=== PATIENT | male | born 1990 | race African-American/Black ===

== ENCOUNTER 2018-09-13 12:41 | Inpatient (IN) | payer OTHER ==
[2018-09-13 14:46] VITALS: BMI 24.2
--- NOTE | 2018-09-13 19:47 | HP ---
CIWA Score - Admission Criteria [facility]AS Guidelines: Admission for Medically Managed Detox: Requires at least one of the followin. CIWA greater than 12 2. Seizures within the past 24 hours 3. Delirium tremens within the past 24 hours 4. Hallucinations within the past 24 hours 5. Acute intervention needed for co occurring medical disorder 6. Acute intervention needed for co occurring psychiatric disorder 7. Severe withdrawal that cannot be handled at a lower level of care (continued vomiting, continued diarrhea, abnormal vital signs) requiring intravenous medication and/or fluids 8. Admission ROS [facility] Chief Complaint: 27 y/o M with PMH HIV (on jenvoya), who presents for rehab from alcohol and sleeping pills. States that he drinks a gallon of alcohol every 2 days and it consists of vodka, beer, or "anything he can find." Last drink was 3 days ago. Sometimes, he also drinks a gallon of alcohol, followed by a pint then a gallon. Depends on the amount of money he is able to get and whether he can trade in his SSI or food stamps in for it. States that the alcohol makes him feel social and he is angry at baseline. Feels lonely and living in a jail currently, "alcohol is his best friend." Has also been using differing amounts of xanax, percocet, melatonin. He buys five at a time. States it makes him feel high when he is lonely. During this time, also smokes marijuana 1/2 - 1/8 oz every three to four days. Was last in detox a few days ago for alcohol and sleeping pills at [facility]. PMH: as above PsxH: denies meds: jenvoya, gabapentin allergies: PCN, haldol - hives FH: denies; angry with mother. fighting SH: cigarettes 1 ppd x 15 yrs . alcohol and sleeping pill use as above cocaine "occasionally" uses Intranasally. denies IVDA Allergies/Adverse Reactions: Allergies Allergy/AdvReac Type Severity Reaction Status Date / Time haloperidol [From Haldol] Allergy Severe Difficulty Verified 09/13/18 14:53 Breathing Penicillins Allergy Difficulty Verified 09/13/18 14:52 Breathing - Ebola screening Have you traveled outside of the country in the last 21 days: No (N) Have you had contact with anyone from an Ebola affected area: No Do you have a fever: No - Review of Systems Constitutional: No Symptoms Reported EENT: reports: Blurred Vision Respiratory: reports: No Symptoms reported Cardiac: reports: No Symptoms Reported GI: reports: Nausea, Poor Fluid Intake, Vomiting, Abdominal cramping : reports: No Symptoms Reported Musculoskeletal: reports: No Symptoms Reported Integumentary: reports: No Symptoms Reported Neuro: reports: Headache, Numbness, Weakness Endocrine: reports: Intolerance to Cold, Intolerance to Heat Hematology: reports: No Symptoms Reported Psychiatric: reports: Orientated x3 Patient History - Patient Medical History Hx Anemia: No Hx Asthma: No Hx Chronic Obstructive Pulmonary Disease (COPD): No Hx Cancer: No Hx Cardiac Disorders: No Hx Congestive Heart Failure: No Hx Hypertension: No Hx Hypercholesterolemia: No Hx Pacemaker: No HX Cerebrovascular Accident: No Hx Seizures: No Hx Dementia: No Hx Diabetes: No Hx Gastrointestinal Disorders: No Hx Liver Disease: No Hx Genitourinary Disorders: No Hx Sexually Transmitted Disorders: No Hx Renal Disease (ESRD): No Hx Thyroid Disease: No Hx Human Immunodeficiency Virus (HIV): Yes (on ) Hx Hepatitis C: No Hx Depression: No Hx Suicide Attempt: No Hx Bipolar Disorder: No Hx Schizophrenia: No - Patient Surgical History Past Surgical History: No Hx Neurologic Surgery: No Hx Cataract Extraction: No Hx Cardiac Surgery: No Hx Lung Surgery: No Hx Breast Surgery: No Hx Breast Biopsy: No Hx Abdominal Surgery: No Hx Appendectomy: No Hx Cholecystectomy: No Hx Genitourinary Surgery: No Hx Section: No Hx Orthopedic Surgery: No Hx Hysterectomy: No Anesthesia Reaction: No - PPD History Documented Results: Negative w/o proof PPD to be Administered?: Yes - Reproductive History Patient is a Female of Child Bearing Age (11 -55 yrs old): No - Smoking Cessation Smoking history: Current every day smoker Aproximately how many cigarettes per day: 20 Hx Chewing Tobacco Use: No Initiated information on smoking cessation: Yes 'Breaking Loose' booklet given: 09/13/18 - Substance & Tx. History Hx Alcohol Use: Yes Hx Substance Use: Yes Substance Use Type: Alcohol, Cocaine, Prescribed Hx Substance Use Treatment: Yes (detox few days ago- [facility]) - Substances abused Alcohol Substance route: Oral Frequency: Daily Amount used: 1 pint - 1 gallon Age of first use: 12 Date of last use: 09/10/18 Cocaine Substance route: Inhalation Frequency: 3-6 times per week Amount used: $200 Age of first use: 14 Date of last use: 08/27/18 Alprazolam (Xanax) Substance route: Oral Frequency: 3-6 times per week Amount used: 4 pills 5mg-15mg Age of first use: 16 Date of last use: 09/02/17 Family Disease History - Family Disease History Family History: Denies Admission Physical Exam [facility] - Vital Signs Vital Signs: Vital Signs - 24 hr 09/13/18 14:27 Temperature 97.9 F Pulse Rate 86 Respiratory 18 Rate Blood Pressure 124/71 - Physical General Appearance: Yes: Disheveled HEENTM: Yes: Within Normal Limits Respiratory: Yes: Lungs Clear Neck: Yes: Within Normal Limits Breast: Yes: Breast Exam Deferred Cardiology: Yes: Regular Rhythm, Regular Rate, S1, S2 Abdominal: Yes: Within Normal Limits, Non Tender, Soft Genitourinary: Yes: Within Normal Limits Back: Yes: Within Normal Limits Musculoskeletal: Yes: Within Normal Limits Extremities: Yes: Within Normal Limits Neurological: Yes: Within Normal Limits, fountain dispenser II-XII NML intact Integumentary: Yes: Within Normal Limits Lymphatic: Yes: Within Normal Limits - Diagnostic (1) HIV (human immunodeficiency virus infection) Current Visit: Yes Status: Acute (2) Alcohol use disorder Current Visit: Yes Status: Acute (3) Xanax use disorder, moderate Current Visit: Yes Status: Acute (4) Cocaine abuse Current Visit: Yes Status: Acute Cleared for Admission [facility] - Detox or Rehab [facility] Level of Care: Medically Supervised Claeared for Rehab Admission: Yes Breathalyzer - Breathalyzer Breathalyzer: 0 Urine Drug Screen - Test Device Lot number: [id number] Expiration date: 07/06/20 - Control Is test valid?: Yes - Results Drug screen NEGATIVE: No Urine drug screen results: THC-Marijuana, BZO-Benzodiazepines Inpatient Rehab Admission - Rehab Decision to Admit Inpatient rehab admission?: Yes - Initial Determination Are CD services needed?: Yes Free of communicable disease: No Not in need of hospitalization: Yes - Rehab Admission Criteria Previous failed treatment: Yes Poor recovery environment: Yes Comorbidities: Yes Lacks judgement: No Patient is meeting Inpatient Rehab admission criteria:: Yes
[2018-09-13] MEDS ORDERED: MENTHOL/PHENOL 1 EACH UD MM PRN (19:53)
[2018-09-13] MEDS ORDERED: ACETAMINOPHEN 325 MG TABLET (FP) PO PRN (19:53)
[2018-09-13] MEDS ORDERED: LOPERAMIDE HCL 2 MG CAPSULE PO PRN (19:53)
[2018-09-13] MEDS ORDERED: MAGNESIUM HYDROX 2400MG/30ML ORAL SUSPENSION 30 ML CUP PO PRN (19:53)
[2018-09-13] MEDS ORDERED: MAGNESIUM CITRATE 300 ML BOTTLE PO PRN (19:53)
[2018-09-13] MEDS ORDERED: P-EPHED 60MG/TRIPROLIDI 2.5MG TABLET PO PRN (19:53)
[2018-09-13] MEDS ORDERED: guaiFENesin 200 MG/10 ML 10 ML UNIT-DOSE CUPS PO PRN (19:53)
[2018-09-13] MEDS ORDERED: IBUPROFEN 400 MG TABLET (FP) PO PRN (19:53)
[2018-09-13] MEDS: cloNIDine HCL 0.1 MG TABLET PO PRN (22:16)
[2018-09-13] MEDS: THIAMINE HCL 100 MG TABLET (FP) PO SCH (22:16)
[2018-09-13] MEDS: MELATONIN 5 MG TABLETS PO PRN (22:16)
[2018-09-14] MEDS: PRENATAL VITAMINS W/ FOLIC ACID TABLET (FP) PO SCH (10:36)
[2018-09-14] MEDS: cloNIDine HCL 0.1 MG TABLET PO PRN ×2 (10:37→21:28)
[2018-09-14 12:08] LABS: HEMATOCRIT 37.4 % (35.4-49); HEMOGLOBIN 12.7 GM/dL (11.7-16.9); MCH 32.6 pg (25.7-33.7); MEAN PLT VOLUME 8.9 fl (7.5-11.1); PLATELET COUNT 198 K/MM3 (134-434); RBC 3.89 M/mm3 (4.00-5.60); RDW 14.4 % (11.9-15.9); WHITE BLOOD COUNT 6.7 K/mm3 (4.0-10.0)
[2018-09-14 12:18] LABS: URINE APPEARANCE CLEAR; URINE BILIRUBIN NEGATIVE (NEGATIVE); URINE COLOR YELLOW; URINE GLUCOSE (UA) NEGATIVE (NEGATIVE); URINE KETONE NEGATIVE (NEGATIVE); URINE LEUK ESTERASE NEGATIVE (NEGATIVE); URINE NITRITE NEGATIVE (NEGATIVE); URINE PROTEIN NEGATIVE (NEGATIVE); URINE UROBILINOGEN 0.2 mg/dL (0.2-1.0)
--- NOTE | 2018-09-14 13:06 | PN ---
Teaching Attending Note Name of Resident: Daniela Tobias ATTENDING PHYSICIAN STATEMENT I saw and evaluated the patient. I reviewed the resident's note and discussed the case with the resident. I agree with the resident's findings and plan as documented. SUBJECTIVE: pt here for rehab from alcohol and cocaine use. Also uses marijuana and xanax. Pt last used alcohol 3 days ago. Pt with h/o HIV and inconsistent med use. Pt states he is homeless. Pt completed detox last week. Pt states has not been using alcohol for the prior 3 days OBJECTIVE: PE: Vital Signs - 24 hr 09/13/18 09/13/18 09/14/18 14:27 22:32 01:40 Temperature 97.9 F 98.2 F 97.8 F Pulse Rate 86 76 74 Respiratory 18 18 18 Rate Blood Pressure 124/71 134/87 111/77 09/14/18 06:52 Temperature 97.8 F Pulse Rate 64 Respiratory 18 Rate Blood Pressure 132/76 without tremors ASSESSMENT AND PLAN: Pt with alcohol use and cocaine use disorders- no evidence of withdrawal at the present time. Will admit for rehab.
[2018-09-14 13:13] LABS: ALBUMIN 3.8 g/dl (3.4-5.0); BILIRUBIN,TOTAL 0.2 mg/dL (0.2-1); BLOOD UREA NITROGEN 7.5 mg/dL (7-18); CALCIUM 8.9 mg/dL (8.5-10.1); TOT PROT 7.3 g/dl (6.4-8.2)
[2018-09-14] MEDS: THIAMINE HCL 100 MG TABLET (FP) PO SCH (21:29)
--- NOTE | 2018-09-15 09:35 | PN ---
[facility] Progress Note Note: Pt was admitted on the 09/13/18 from [facility] and sent to Rehab floor. Pt denied past psych Hx on admission but now reports to his counselor Renee Gaitan and comic writer that he has a hx of Bipolar disorder and Schizoaffective disorder. Reports he takes Seroquel and Buspar. Also reports he has a hx of HIV(+) and takes Genvoya, last taken one or two weeks ago and recently filled the Rx. Reports he does not remember the pharmacy where filled. Pt reports he is homeless going from house to house and detention to detention so unable to remember where the medications are presently "because was busy getting high". States he has a PCP at [place], [place]. Reports he sees his doctor jamshid 3 months, with last visit in July 2018 and next visit on 10/12/18. Unable to confirm medications from pharmacy online as none was posted. Vital Signs 09/15/18 09/15/18 03:35 06:49 Temperature 97.9 F Pulse Rate 71 Respiratory 18 18 Rate Blood Pressure 128/80 Laboratory Tests 09/14/18 09/14/18 09/14/18 07:50 08:10 08:10 WBC 6.7 RBC 3.89 L Hgb 12.7 Hct 37.4 MCV 96.0 MCH 32.6 MCHC 34.0 RDW 14.4 Plt Count 198 MPV 8.9 Sodium 140 Potassium 4.0 Chloride 105 Carbon Dioxide 28 Anion Gap 7 L BUN 7.5 Creatinine 1.0 Est GFR (CKD-EPI)AfAm 117.36 Est GFR (CKD-EPI)NonAf 101.26 Random Glucose 91 Calcium 8.9 Total Bilirubin 0.2 AST 48 H ALT 41 Alkaline Phosphatase 65 Total Protein 7.3 Albumin 3.8 Urine Color Yellow Urine Appearance Clear Urine pH 5.0 Ur Specific [place] 1.022 Urine Protein Negative Urine Glucose (UA) Negative Urine Ketones Negative Urine Blood Negative Urine Nitrite Negative Urine Bilirubin Negative Urine Urobilinogen 0.2 Ur Leukocyte Esterase Negative RPR Titer 09/14/18 08:10 WBC RBC Hgb Hct MCV MCH MCHC RDW Plt Count MPV Sodium Potassium Chloride Carbon Dioxide Anion Gap BUN Creatinine Est GFR (CKD-EPI)AfAm Est GFR (CKD-EPI)NonAf Random Glucose Calcium Total Bilirubin AST ALT Alkaline Phosphatase Total Protein Albumin Urine Color Urine Appearance Urine pH Ur Specific [place] Urine Protein Urine Glucose (UA) Urine Ketones Urine Blood Urine Nitrite Urine Bilirubin Urine Urobilinogen Ur Leukocyte Esterase RPR Titer Nonreactive A:Peronal hx hiv(+) Personal hx bipolar disorder Personal hx schizoaffective disorder Personal hx medications Noncompliant with antiretroviral med plan:psych consult today f/u with pcp/ clinic after Rehab for medical management.
[2018-09-15] MEDS: PRENATAL VITAMINS W/ FOLIC ACID TABLET (FP) PO SCH (10:26)
[2018-09-15] MEDS: MELATONIN 5 MG TABLETS PO PRN ×2 (22:03→23:48)
[2018-09-15] MEDS: THIAMINE HCL 100 MG TABLET (FP) PO SCH (22:03)
--- NOTE | 2018-09-16 10:54 | CONSULT ---
<Fiona Mendez - Last Filed: 09/19/18 13:27> Psychiatric Findings - Problem List ([place] 1, 2,3) (1) Schizoaffective disorder Status: Chronic Comment: self reports <Thiago Tony - Last Filed: 09/25/18 16:16> [facility] Psychiatric Consult - Data Date of interview: 09/16/18 Admission source: [facility] Identifying data: Patient is a 27 year old single male, without children, unemployed, homeless, and is supported by [facility] and food stamps. This is patient' s first admission to detox at [facility]. Patient admitted to for alcohol, cocaine and benzodiazepine dependence. Substance Abuse History: Smoking Cessation. Smoking history: Current every day smoker. Aproximately how many cigarettes per day: 20. Hx Chewing Tobacco Use: No. Initiated information on smoking cessation: Yes. 'Breaking Loose' booklet given: 09/13/18. - Substance & Tx. History. Hx Alcohol Use: Yes. Hx Substance Use: Yes. Substance Use Type: Alcohol, Cocaine, Prescribed. Hx Substance Use Treatment: Yes (detox few days ago- [facility]). - Substances abused. Alcohol. Substance route: Oral. Frequency: Daily. Amount used: 1 pint - 1 gallon. Age of first use: 12. Date of last use: 09/10/18. Cocaine. Substance route: Inhalation. Frequency: 3-6 times per week. Amount used: $200. Age of first use: 14. Date of last use: 08/27/18. Alprazolam ( Xanax). Substance route: Oral. Frequency: 3-6 times per week. Amount used: 4 pills 5mg-15mg. Age of first use: 16. Date of last use: 09/02/17 Medical History: HIV Psychiatric History: Patient's first psychiatric contact was at 5 years of age. States he was [facility] due to difficulty focusing and hyperactivity. States he was prescribed ritalin. Reports being at [facility] for approximately three years. Mr. Salas also reports hearing voices as a child/ adolescent but not as an adult. After discharge from Health System he reports admission to [facility] chemical dependency unit and than continued treatment at [facility] outpatient clinic. As an adult he reports hospitalizations at [facility], and [facility]. States he has been followed by the ACT team in the past (2016) and used to accept haldol decanoate but medication was discontinued after experiencing an allergic reaction (hives). Mr. Salas reports past trials of abilify, buspar, risperdal, and thorazine. Patient reports past diagnosis of bipolar disorder/schizoaffective disorder. Mr. Salas last received outpatient psychiatric care several months ago. States he has received outpatient psychiatric care at [facility], and [facility]. He reports being prescribed seroquel (unknown dose) and buspar although has not accepted psychotropic medications in over two months. Patient reports difficulty with compliance to psychiatric treatment due to being homeless. At present patient is calm and cooperative. He denies auditory/visual hallucinatins. No psychosis, manic or depressive symptoms noted. Physical/Sexual Abuse/Trauma History: denies. Mental Status Exam - Mental Status Exam Alert and Oriented to: Time, Place, Person Cognitive Function: Good Patient Appearance: Well Groomed Mood: Euthymic Affect: Mood Congruent Patient Behavior: Cooperative Speech Pattern: Clear Voice Loudness: Normal Thought Process: Goal Oriented Thought Disorder: Not Present Hallucinations: Denies Suicidal Ideation: Denies Homicidal Ideation: Denies Insight/Judgement: Poor Sleep: Fair Appetite: Fair Muscle strength/Tone: Normal Gait/Station: Normal Psychiatric Findings - Problem List ([place] 1, 2,3) (1) Schizoaffective disorder Status: Chronic Comment: self reports (2) Alcohol use disorder Status: Chronic (3) Cocaine abuse Status: Chronic (4) Xanax use disorder, moderate Status: Chronic (5) Mood disorder Status: Chronic - Initial Treatment Plan Initial Treatment Plan: Psychoeducation provided. Detoxification in progress. [facility] pharmacy contacted at [phone] and able to speak to pharmacist. As per pharmacist patient had a 30 day prescription for zoloft 50mg + Buspar 15mg TID on May 20. Will order zoloft 50mg + Buspar 15mg BID + Seroquel 50mg HS.
[2018-09-16] MEDS: PRENATAL VITAMINS W/ FOLIC ACID TABLET (FP) PO SCH (11:00)
[2018-09-16] MEDS: ELVITEG/COB/EMTRI/TENOF (GENVOYA) TABLET (NF) PO SCH (13:27)
[2018-09-16] MEDS: THIAMINE HCL 100 MG TABLET (FP) PO SCH (21:34)
[2018-09-16] MEDS: MELATONIN 5 MG TABLETS PO PRN (21:36)
[2018-09-16] MEDS: QUEtiapine FUMARATE 50 MG TABLET PO SCH (21:36)
[2018-09-16] MEDS ORDERED: QUEtiapine FUMARATE 100 MG TABLET (FP) PO SCH (22:00)
[2018-09-17] MEDS: ELVITEG/COB/EMTRI/TENOF (GENVOYA) TABLET (NF) PO SCH (07:11)
[2018-09-17] MEDS: SERTRALINE HCL 50 MG TABLET (FP) PO SCH (10:19)
[2018-09-17] MEDS: PRENATAL VITAMINS W/ FOLIC ACID TABLET (FP) PO SCH (10:19)
[2018-09-17] MEDS: MELATONIN 5 MG TABLETS PO PRN (21:38)
[2018-09-17] MEDS: QUEtiapine FUMARATE 50 MG TABLET PO SCH (21:38)
[2018-09-17] MEDS: THIAMINE HCL 100 MG TABLET (FP) PO SCH (21:38)
[2018-09-18] MEDS: ELVITEG/COB/EMTRI/TENOF (GENVOYA) TABLET (NF) PO SCH
[2018-09-18] MEDS: MAG HYDROX/AL HYDROX/SIMETH 30 ML UNIT-DOSE CUP PO PRN (02:52)
[2018-09-18] MEDS: SERTRALINE HCL 50 MG TABLET (FP) PO SCH (09:00)
[2018-09-18] MEDS: PRENATAL VITAMINS W/ FOLIC ACID TABLET (FP) PO SCH (09:00)
[2018-09-18] MEDS: THIAMINE HCL 100 MG TABLET (FP) PO SCH (21:40)
[2018-09-18] MEDS: MELATONIN 5 MG TABLETS PO PRN (21:41)
[2018-09-18] MEDS: QUEtiapine FUMARATE 50 MG TABLET PO SCH (21:41)
[2018-09-19] MEDS: ELVITEG/COB/EMTRI/TENOF (GENVOYA) TABLET (NF) PO SCH (07:00)
[2018-09-19 07:14] VITALS: TEMP 98.2
[2018-09-19] MEDS: MAG HYDROX/AL HYDROX/SIMETH 30 ML UNIT-DOSE CUP PO PRN (09:00)
[2018-09-19] MEDS: PRENATAL VITAMINS W/ FOLIC ACID TABLET (FP) PO SCH (09:04)
[2018-09-19] MEDS: SERTRALINE HCL 50 MG TABLET (FP) PO SCH (09:06)
[2018-09-19 10:18] VITALS: BP 132/69; PULSE 79
--- NOTE | 2018-09-19 12:35 | PN ---
Psychiatric Progress Note Vital Signs: Vital Signs Period Temp Pulse Resp BP Sys/Diop Pulse Ox Last 24 Hr 98.2 F 64-79 18-18 132-142/69-92 Date of Session: 09/19/18 Chief Complaint:: Innapropriate behavior HPI: Patient is a 27 yeaes old Black male with history of Schizoaffective Disorder, multiple psychiatric hospitalizationa, polysubstance abuse(alcohol, cocaine, xanax) admitted to [facility] on 09/13/18 for rehabilitation. It was reported by nursing staff that patient threatened other patient and staff. reportedly, this morning, he jumped on the counter of nursing station, grabbed the computer monitor which was judged as menacing by staff. Feces were found in the bath tube and it was presumed by staff that patient is the culprit Current Medications: Active Medications Generic Name Dose Route Start Last Admin Trade Name Freq PRN Reason Stop Dose Admin Acetaminophen 650 mg 09/13/18 19:53 09/14/18 10:37 Tylenol - PO 650 mg Q4H PRN Administration FEVER Al Hydroxide/Mg Hydroxide 30 ml 09/13/18 19:53 09/19/18 09:00 Mylanta Oral Suspension - PO 30 ml Q6H PRN Administration DYSPEPSIA Buspirone HCl 15 mg 09/16/18 22:00 09/19/18 09:04 Buspar - PO 15 mg BID QUENTIN Administration Elvitegravir/Cobicis/Emtricit/Tenof 1 tab 09/16/18 13:00 09/19/18 07:00 Genvoya (Non-Formulary) PO 1 tab DAILY@0800 QUENTIN Administration Eucalyptus/Menthol/Phenol/Sorbitol 1 each 09/13/18 19:53 Cepastat Lozenge - MM Q4H PRN SORE THROAT Guaifenesin 10 ml 09/13/18 19:53 Robitussin - PO Q6H PRN COUGH Ibuprofen 400 mg 09/13/18 19:53 Motrin - PO Q6H PRN Pain level 4-6 Loperamide HCl 4 mg 09/13/18 19:53 Imodium - PO Q6H PRN DIARRHEA Magnesium Citrate 300 ml 09/13/18 19:53 Citroma - PO Q48H PRN CONSTIPATION Magnesium Hydroxide 30 ml 09/13/18 19:53 Milk Of Magnesia - PO DAILY PRN CONSTIPATION Melatonin 5 mg 09/13/18 20:22 09/18/18 21:41 Melatonin PO 5 mg HS PRN Administration INSOMNIA Multivit/Folic Acid/Iron 1 tab 09/14/18 10:00 09/19/18 09:04 Vitamins (Sjr) - PO 1 tab DAILY QUENTIN Administration Pseudoephedrine/Triprolidine 1 combo 09/13/18 19:53 Actifed - PO TID PRN NASAL CONGESTION Quetiapine Fumarate 50 mg 09/16/18 22:00 09/18/18 21:41 Seroquel - PO 50 mg HS QUENTIN Administration Sertraline HCl 50 mg 09/17/18 10:00 09/19/18 09:06 Zoloft - PO Not Given DAILY QUENTIN Thiamine HCl 100 mg 09/13/18 22:00 09/18/18 21:40 Vitamin B1 - PO 100 mg HS QUENTIN Administration Provider note:: Chart reviewed, JUDITH Tony notes read and aprreciated and patient seen. He is alert, well oriented with goal-directed speech. He shows no clinical evidence of psychosis, yanira or depression. He denies threatening peers and staff. He claims that he jumped on the nursing station counter because he was experiencing a lot of anxiety. He believes he was experiencing adverse-efffects with one of his medications. He thinks it is Zoloft because it happened in the past after taking that medication. He claims that medication also makes him forget and fully aware of his surroundings. He told typewriter aligner that he has been off medications for a few months. He said that he was seeing psychiatrist at [facility] and he was then on Seroquel 400 mg po BID along with Zoloft and Buspar. Currently he is on Seroquel 50 mg/hs, Buspar 15 mg/bid, Zoloft 50 mg/day ordered on 09/16/18 by JUDITH Tony after calling [facility]. Medication management was discussed with patient and he was willing to accept increase in Seroquel dosage to 100 mg po BID. Treatment team consisting of typewriter aligner, counselor manufacturing shift supervisor, nurse manufacturing shift supervisor and unit nurse have discussed patient case as well as interviewed patient. French Instructor provided his input regarding state of patient mental health and decision for patient outcome will be made by interested constitution party Mental Status Exam - Mental Status Exam Alert and Oriented to: Time, Place, Person Cognitive Function: Fair Patient Appearance: Well Groomed Mood: Hopeful, Euthymic Affect: Appropriate Patient Behavior: Appropriate, Cooperative Speech Pattern: Clear Voice Loudness: Normal Thought Process: Intact Hallucinations: Denies Suicidal Ideation: Denies Homicidal Ideation: Denies Insight/Judgement: Fair Sleep: Fair Appetite: Good Muscle strength/Tone: Normal Gait/Station: Normal Psychiatric Treatment Plan - Problem List (1) Schizoaffective disorder Current Visit: Yes Comment: self reports (2) Alcohol dependence Current Visit: Yes (3) Cocaine dependence Current Visit: Yes (4) Sedative hypnotic or anxiolytic dependence Current Visit: Yes (5) Nicotine dependence Current Visit: Yes (6) HIV (human immunodeficiency virus infection) Current Visit: Yes Initial treatment plan: 1) Discontinue Seroquel 50 mg po HS. 2) Start Seroquel 100 mg po BID and increase medication gradually to reach 400 mg po BID. 3) Continue inpatient rehabilitation till decision is reached regarding disposition by team
--- NOTE | 2018-09-19 14:13 | PN ---
[facility] Progress Note Note: Patient is discharged today. Scripts for 30 days supply of medications(Zoloft 50 mg/day, Buspar 15 mg/bid, Seroquel 100 mg/bid) are electronically transmitted to [facility] at [id number], [place] [address]
[2018-09-19] MEDS ORDERED: QUEtiapine FUMARATE 100 MG TABLET (FP) PO SCH (22:00)
== END 2018-09-19 14:30 | disposition home or self-care (01) | DRG 772 ==
LOC: YASAS 12:41 → Y3N 20:50 → Y5N 09-14 00:59
PROVIDERS: ADMIT Surgery; ATTEND Surgery
PROC: HZ42ZZZ Group Counseling for Substance Abuse Treatment, Cognitive-Behavioral (ICD-10-PCS; principal; 2018-09-13)
DX: F10.20 Alcohol dependence, uncomplicated (principal); F13.20 Sedative, hypnotic or anxiolytic dependence, uncomplicated; F14.20 Cocaine dependence, uncomplicated; F17.210 Nicotine dependence, cigarettes, uncomplicated; F25.9 Schizoaffective disorder, unspecified; F39 Unspecified mood [affective] disorder; F31.9 Bipolar disorder, unspecified; Z21 Asymptomatic human immunodeficiency virus [HIV] infection status; Z91.14 Patient's other noncompliance with medication regimen
CPT/HCPCS: 36415; 80053; 81003; 85027; 86480; 86593; J0735

== ENCOUNTER 2019-02-14 12:30 | Inpatient (IN) | payer OTHER ==
[2019-02-14 13:43] VITALS: BMI 23.6
--- NOTE | 2019-02-14 14:53 | HP ---
CIWA Score Nausea/Vomitin-No Nausea/No Vomiting Muscle Tremors: None Anxiety: 0-No Anxiety, at Ease Agitation: 0-Normal Activity Paroxysmal Sweats: No Perspiration Orientation: 0-Oriented Tacttile Disturbances: 0-None Auditory Disturbances: 0-None Visual Disturbances: 0-None Headache: 0-None Present CIWA-Ar Total Score: 0 - Admission Criteria OASAS Guidelines: Admission for Medically Managed Detox: Requires at least one of the followin. CIWA greater than 12 2. Seizures within the past 24 hours 3. Delirium tremens within the past 24 hours 4. Hallucinations within the past 24 hours 5. Acute intervention needed for co occurring medical disorder 6. Acute intervention needed for co occurring psychiatric disorder 7. Severe withdrawal that cannot be handled at a lower level of care (continued vomiting, continued diarrhea, abnormal vital signs) requiring intravenous medication and/or fluids 8. Admitting History and Physical - Smoking History Smoking history: Current every day smoker Aproximately how many cigarettes per day: 20 - Alcohol/Substance Use Hx Alcohol Use: Yes Admission [facility] Allergies/Adverse Reactions: Allergies Allergy/AdvReac Type Severity Reaction Status Date / Time haloperidol [From Haldol] Allergy Severe Difficulty Verified 02/14/19 13:11 Breathing Penicillins Allergy Difficulty Verified 02/14/19 13:11 Breathing History of Present Illness: 28 y/o M with history of cocaine,methamphetamines, alcohol ( DOC) and xanax use [facility] rehab. He has been using drugs since 23 but has been using consistently from 25 to 28 yrs of age. cocaine:smokes 2-3 bags daily. No injections. Last use was over the weekend methamphetamines: smokes half a gram daily. Last use was also over the weekend. Xanax: 2pills a day on to help with sleep. and he get urine test at his half-way. Alcohol: 2-3 pints of oleksandr daily sometimes a gallon if drinking with friends. last drink was thursday. He admits to blackouts in the past but no trauma. He has been told that he suffered withdrawal seizures in the past but denies receiving medical care for that. last rehab was in september 2018. smokes a pack and a half a day for 15 yrs. stopped for one year in a past. PMH: HIV 2018 on genvoya, neuropathy PSYCH HX: depression on meds PSH: none Social Hx: SRO half-way, pt on SSI PE VS : 97.9F, 115/79 mmHg, 96 bpm, 16 MORIS :0 Utox: reinaldo, MET, AMP, BZO CIWA: 0 General: NAD HEENT:PERRLA, moist mucous membranes LUNGS: VBS b/l HEART: RRR no MRG Abdomen : +BS, NTND extremities ; 2+ pulses, no edema neuro: grossly intact Plan: alcohol use disorder and other substance use : rehab psychiatry consult for depression and medication HIV - Genvoya - Ebola screening Have you traveled outside of the country in the last 21 days: No Have you had contact with anyone from an Ebola affected area: No Do you have a fever: No Patient History - Patient Medical History Hx Anemia: No Hx Asthma: No Hx Chronic Obstructive Pulmonary Disease (COPD): No Hx Cancer: No Hx Cardiac Disorders: No Hx Congestive Heart Failure: No Hx Hypertension: No Hx Hypercholesterolemia: No Hx Pacemaker: No HX Cerebrovascular Accident: No Hx Seizures: No Hx Dementia: No Hx Diabetes: No Hx Gastrointestinal Disorders: No Hx Liver Disease: No Hx Genitourinary Disorders: No Hx Sexually Transmitted Disorders: No Hx Renal Disease (ESRD): No Hx Thyroid Disease: No Hx Human Immunodeficiency Virus (HIV): Yes (on ) Hx Hepatitis C: No Hx Depression: No Hx Suicide Attempt: No Hx Bipolar Disorder: No Hx Schizophrenia: No - Patient Surgical History Past Surgical History: No Hx Neurologic Surgery: No Hx Cataract Extraction: No Hx Cardiac Surgery: No Hx Lung Surgery: No Hx Breast Surgery: No Hx Breast Biopsy: No Hx Abdominal Surgery: No Hx Appendectomy: No Hx Cholecystectomy: No Hx Genitourinary Surgery: No Hx Section: No Hx Orthopedic Surgery: No Hx Hysterectomy: No Anesthesia Reaction: No - Smoking Cessation Smoking history: Current every day smoker Aproximately how many cigarettes per day: 20 Hx Chewing Tobacco Use: No Initiated information on smoking cessation: Yes 'Breaking Loose' booklet given: 02/14/19 - Substances abused Alcohol Substance route: Oral Frequency: Daily Amount used: 1PINT OF VODKA /DAY Age of first use: 12 Date of last use: 02/12/19 Cocaine Substance route: Inhalation Frequency: Daily Amount used: 1/2 OZ OR $210 Age of first use: 14 Date of last use: 02/14/19 Alprazolam (Xanax) Substance route: Oral Frequency: Daily Amount used: 10MG/DAY Age of first use: 16 Date of last use: 02/14/19 Admission Physical Exam S - Vital Signs Vital Signs: Vital Signs - 24 hr 02/14/19 13:13 Temperature 97.9 F Pulse Rate 96 H Respiratory 16 Rate Blood Pressure 115/79 Cleared for Admission [facility] - Detox or Rehab [facility] Level of Care: Medically Supervised Screened but not Admitted - Documentation of Visit Screened but not Admitted: No Breathalyzer - Breathalyzer Breathalyzer: 0 Urine Drug Screen - Test Device Lot number: [id number] Expiration date: 10/06/20 - Control Is test valid?: Yes - Results Drug screen NEGATIVE: No Urine drug screen results: REINALDO-Cocaine, MET-Methamphetamine, AMP-Amphetamines, BZO-Benzodiazepines Inpatient Rehab Admission - Rehab Decision to Admit Inpatient rehab admission?: Yes - Initial Determination Are CD services needed?: Yes Free of communicable disease: Yes Not in need of hospitalization: Yes - Rehab Admission Criteria Previous failed treatment: Yes Poor recovery environment: Yes Comorbidities: No Lacks judgement: Yes Patient is meeting Inpatient Rehab admission criteria:: Yes
--- NOTE | 2019-02-14 15:17 | PN ---
Teaching Attending Note Name of Resident: Erna Ellington ATTENDING PHYSICIAN STATEMENT I saw and evaluated the patient. I reviewed the resident's note and discussed the case with the resident. I agree with the resident's findings and plan as documented. SUBJECTIVE: 28yo homeless, SRO- intermediate, HIV pos, here requesting rehab. Pt uses alcohol (MORIS-0), cocaine, met and BZO (Utox pos)- says his last drink was 2 days ago. CIWA-0 OBJECTIVE: Vital Signs - 24 hr 02/14/19 13:13 Temperature 97.9 F Pulse Rate 96 H Respiratory 16 Rate Blood Pressure 115/79 not tremulous ASSESSMENT AND PLAN: a/p AUD- rehab admission HIV pos- on Genvoya
[2019-02-14] MEDS ORDERED: ACETAMINOPHEN 325 MG TABLET (FP) PO PRN (15:32)
[2019-02-14] MEDS ORDERED: MAGNESIUM CITRATE 300 ML BOTTLE PO PRN (15:32)
[2019-02-14] MEDS ORDERED: IBUPROFEN 400 MG TABLET (FP) PO PRN (15:32)
[2019-02-14] MEDS ORDERED: P-EPHED 60MG/TRIPROLIDI 2.5MG TABLET PO PRN (15:32)
[2019-02-14] MEDS ORDERED: MENTHOL/PHENOL 1 EACH UD MM PRN (15:32)
[2019-02-14] MEDS ORDERED: LOPERAMIDE HCL 2 MG CAPSULE PO PRN (15:32)
[2019-02-14] MEDS ORDERED: hydrOXYzine PAMOATE 25 MG CAPSULE (FP) PO PRN (15:32)
[2019-02-14] MEDS ORDERED: MAG HYDROX/AL HYDROX/SIMETH 30 ML UNIT-DOSE CUP PO PRN (15:32)
[2019-02-14] MEDS ORDERED: guaiFENesin 200 MG/10 ML 10 ML UNIT-DOSE CUPS PO PRN (15:32)
[2019-02-14] MEDS ORDERED: MAGNESIUM HYDROX 2400MG/30ML ORAL SUSPENSION 30 ML CUP PO PRN (15:32)
[2019-02-14] MEDS: THIAMINE HCL 100 MG TABLET (FP) PO SCH (21:22)
[2019-02-14] MEDS ORDERED: MELATONIN 5 MG TABLETS PO PRN (22:00)
--- NOTE | 2019-02-15 08:57 | CONSULT ---
[facility] Psychiatric Consult - Data Date of interview: 02/15/19 Admission source: Self-referred Identifying data: Mr Salas is as 28 years old single, unemployed receiving SSI, homeless admitted to this facility on 02/14/19 for inpatient rehabilitation for a alcohol, cocaine, benzodiazepine and methamphetamine Substance Abuse History: Reports history of alcohol, cocaine, xanax and crystal meth. Refer to addiction counselor's summary for further information Medical History: Significant for HIV and neropathy. Smokes cigarettes 1ppd Psychiatric History: Patient is known from one previous admission to this facility in September 2018. He is irritable, very uncooperative with interview. He was seen by JUDITH Tony on 09/16/18 when he was admitted to this facility. He reported that his first psychiatric contact was at age 5 when he was admitted to [facility] due to difficulty focusing and hyperactivity. He was diagnosed with ADHD and prescribed ritalin. He said that he stayed there for approximately three years. After his discharge from [facility], he went to [facility] chemical dependency unit and then continued treatment at [facility] outpatient clinic. As an adult he was diagnosed with Schizoaffective Disorder and has had multiple psychiatric hospitalizations at various facilities including [facility], [facility] , and [facility]. Reports that he is not curretnly receiving outpatient psychiatric treatment. OPD care in the past were at [facility] in 2015 when he was on Haldol decanoate, [facility], [facility], and [facility]. In the past he received trials of Abilify, Seroquel, Thorazine, Buspar etc. His most recent psychotropic medication treatment was when he saw JUDITH Tony on 09/16 and prescribed Zoloft 50 mg/day, Buspar 15 mg/bid and Seroquel 50 mg/hs. Told automobile service writer that he has been off medications since discharge from this facility on 09/19/18. At present, denies experiencing psychotic, manic or depressive symptoms. However he is very irritable and uncooperative Mental Status Exam - Mental Status Exam Alert and Oriented to: Time, Place, Person Cognitive Function: Fair Patient Appearance: Disheveled Mood: Irritable Affect: Appropriate Patient Behavior: Uncooperative Speech Pattern: Clear Voice Loudness: Normal Thought Process: Intact Thought Disorder: Not Present Hallucinations: Denies Suicidal Ideation: Denies Homicidal Ideation: Denies Insight/Judgement: Poor Sleep: Fair Appetite: Good Muscle strength/Tone: Normal Gait/Station: Normal Psychiatric Findings - Problem List ([place] 1, 2,3) (1) Schizoaffective disorder Current Visit: No Status: Chronic Comment: self reports (2) Substance induced mood disorder Current Visit: Yes Status: Acute (3) Alcohol dependence Current Visit: No Status: Acute (4) Cocaine dependence Current Visit: No Status: Acute (5) Sedative hypnotic or anxiolytic dependence Current Visit: No Status: Acute (6) Methamphetamine dependence Current Visit: Yes Status: Acute (7) Nicotine dependence Current Visit: No Status: Chronic (8) HIV (human immunodeficiency virus infection) Current Visit: No Status: Chronic (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 2) Continue inpatient rehabilitation
[2019-02-15 12:06] LABS: HEMATOCRIT 39.2 % (35.4-49); HEMOGLOBIN 13.1 GM/dL (11.7-16.9); MCH 31.9 pg (25.7-33.7); MCHC 33.4 g/dl (32.0-35.9); MEAN CELL VOLUME 95.3 fl (80-96); MEAN PLT VOLUME 8.6 fl (7.5-11.1); PLATELET COUNT 233 K/MM3 (134-434); RBC 4.12 M/mm3 (4.00-5.60); RDW 14.5 % (11.9-15.9); WHITE BLOOD COUNT 5.9 K/mm3 (4.0-10.0)
[2019-02-15 12:14] LABS: ALBUMIN 3.9 g/dl (3.4-5.0); BILIRUBIN,TOTAL 0.3 mg/dL (0.2-1); BLOOD UREA NITROGEN 11.5 mg/dL (7-18); CALCIUM 8.8 mg/dL (8.5-10.1); POTASSIUM 4.4 mmol/L (3.5-5.1); TOT PROT 7.5 g/dl (6.4-8.2)
--- NOTE | 2019-02-15 12:43 | PN ---
[facility] Progress Note Note: Pt is a 28 y/o male with a hx of alcohol,cocaine, xanax and crystal Metamphatamine use disorder admitted to rehab on 02/14/19. This is second admission for this patient who was first here on 09/13/18 to 09/19/18. Pt first admission ended with disruptive and threatening behavior(see nurses and counselor's notes of 09/19/18)and patient was discharged. PMHx:HIV+(on Genvoya) and Neuropathy PPsych Hx:Schizoaffective Disorder(Seroquel and Buspar but not compliant per pt' s verbal account) pt reports he has primary care with [facility], [phone] [facility] with Dr. Gastelum Pt was referred for psych consult/medication(see psych note) this morning and pt became very irritable and uncooperative with the psychiatrist refusing to answer questions and stating "it makes me angry to be asked about my past. My past is in the hole. and i don't have to take psych medications to be here. I'm gonna go to my groups and I don't need psych medications". Meanwhile, pt continues on/off irritability,restlessness and talkative with any attempt for the treatment team to discuss treatment modalities with pt. Vital Signs - 24 hr 02/14/19 02/15/19 02/15/19 13:13 00:30 03:30 Temperature 97.9 F Pulse Rate 96 H Respiratory 16 20 18 Rate Blood Pressure 115/79 02/15/19 07:46 Temperature Pulse Rate Respiratory 18 Rate Blood Pressure Alert o x 3 nad oob ambulating with steady gait, sometimes pacing on hallway denies s/h/i A/P Uncooperative with clinical care/meds D/w Dr. Aguilera along with assistant plant manager, Ms Ny Tolliver and Dr. Mendez( psychiatrist) Dr. Mendez ordered Seroquel 100 mg po hs Monitor behavior behavior D/w counselor, Julio Cesar Bergman and investment manager Ms tolliver may consider transfering pt to another rehab that will better serve patient's rehab needs if bed becomes available.
[2019-02-15] MEDS: ELVITEG/COB/EMTRI/TENOF (GENVOYA) TABLET (NF) PO SCH (14:39)
[2019-02-15] MEDS: PRENATAL VITAMINS W/ FOLIC ACID TABLET (FP) PO SCH (14:40)
--- NOTE | 2019-02-15 14:54 | PN ---
S Progress Note Note: Patient requests to take Buspar which he took in the past. Buspar 15 mg/bid ordered
[2019-02-15] MEDS: THIAMINE HCL 100 MG TABLET (FP) PO SCH (21:20)
[2019-02-15] MEDS ORDERED: QUEtiapine FUMARATE 100 MG TABLET (FP) PO SCH (22:00)
[2019-02-16] MEDS: ELVITEG/COB/EMTRI/TENOF (GENVOYA) TABLET (NF) PO SCH (10:57)
[2019-02-16] MEDS: PRENATAL VITAMINS W/ FOLIC ACID TABLET (FP) PO SCH (10:58)
--- NOTE | 2019-02-16 11:56 | PN ---
S Progress Note Note: Pt irritable this morning. States his MH meds need adjusting. MH referral done. Pt has a good rapport with SW
--- NOTE | 2019-02-16 12:37 | PN ---
[facility] Progress Note Note: Patient requests to have his psychotropic medications adjusted. He is currently on Seroquel 100 mg/hs and buspar 15 mg/bid. Requests for Seroquel dosage to be decreased to 50 mg/hs, Buspar dosage reduced to 10 mg/bid and Risperdal 1 mg/ bid added to his regimen
[2019-02-16] MEDS: risperiDONE 1 MG TABLET (FP) PO SCH ×2 (14:32→21:33)
[2019-02-16] MEDS: THIAMINE HCL 100 MG TABLET (FP) PO SCH (21:33)
[2019-02-16] MEDS ORDERED: QUEtiapine FUMARATE 50 MG TABLET PO SCH (22:00)
[2019-02-16] MEDS ORDERED: busPIRone HCL 10 MG TABLET (FP) PO SCH (22:00)
[2019-02-17 07:34] VITALS: BP 134/95; PULSE 94; TEMP 98.9
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
[2019-02-17 15:02] LABS: PH,URINE 5.5 (5.0-8.0); URINE APPEARANCE CLEAR; URINE BILIRUBIN NEGATIVE (NEGATIVE); URINE COLOR YELLOW; URINE GLUCOSE (UA) NEGATIVE (NEGATIVE); URINE KETONE NEGATIVE (NEGATIVE); URINE LEUK ESTERASE NEGATIVE (NEGATIVE); URINE NITRITE NEGATIVE (NEGATIVE); URINE PROTEIN NEGATIVE (NEGATIVE); URINE UROBILINOGEN 0.2 mg/dL (0.2-1.0)
== END 2019-02-17 11:00 | disposition short-term general hospital (02) | DRG 772 ==
LOC: YASAS 12:30 → Y5N 16:25
PROVIDERS: ADMIT Neuromusculoskeletal Medicine & OMM; ATTEND Neuromusculoskeletal Medicine & OMM
PROC: HZ42ZZZ Group Counseling for Substance Abuse Treatment, Cognitive-Behavioral (ICD-10-PCS; principal; 2019-02-14)
DX: F10.20 Alcohol dependence, uncomplicated (principal); F13.20 Sedative, hypnotic or anxiolytic dependence, uncomplicated; F14.20 Cocaine dependence, uncomplicated; F15.20 Other stimulant dependence, uncomplicated; F17.210 Nicotine dependence, cigarettes, uncomplicated; F25.9 Schizoaffective disorder, unspecified; F19.24 Other psychoactive substance dependence with psychoactive substance-induced mood disorder; Z21 Asymptomatic human immunodeficiency virus [HIV] infection status; G62.9 Polyneuropathy, unspecified; Z88.0 Allergy status to penicillin; Z88.8 Allergy status to other drugs, medicaments and biological substances
CPT/HCPCS: 36415; 80053; 81003; 85027; 86593; J2794